=== PATIENT | male | born 1980 | race Caucasian/White ===

== ENCOUNTER → 2018-02-09 03:25 | Outpatient (CLI) | payer BC, SELFPAY ==
[2018-02-09 11:37] LABS: HCT 41.8 % (40.0-50.0); HGB 14.6 g/dL (13.5-17.5); Mean Corp. HGB Concentration 34.9 g/dL (32.0-36.0); Mean Corpuscular Hemoglobin 32.5 pg (27.0-33.0); Mean Corpuscular Volume 93.1 fL (80-95); Mean Platelet Volume 10.3 fL (8.0-11.0); Platelet Count 214 x1000/uL (130-400); RBC 4.49 m/cumm (4.50-6.00); RBC Distribution Width 11.7 % (11.8-14.1); White Blood Cell Count 11.17 k/cumm (4.4-10.8)
[2018-02-09 12:21] LABS: ALT 72 U/L (12-78); AST 47 U/L (15-37); Alkaline Phosphatase 119 U/L (46-116); Anion Gap 7.8 mmol/L (3-11); BUN 9 mg/dL (7-18); Bilirubin, Total 0.4 mg/dL (0.2-1.0); CO2 28.2 mmol/L (21.0-32.0); Calcium 8.5 mg/dL (8.5-10.1); Chloride 102 mmol/L (98-107); Cholesterol 226 mg/dL (50-200); Glucose 107 mg/dL (70-100); HDL Cholesterol 33 mg/dL (40-60); LDL CHOLESTEROL 137 mg/dL (<100); Potassium 4.6 mmol/L (3.5-5.1); Sodium 138 mmol/L (136-145); TSH (W/Ref FT4) 2.27 uIU/mL (0.358-3.74); Total Protein 7.4 g/dL (6.4-8.2); Triglyceride 400 mg/dL (30-150)
== END ==
PROVIDERS: PCP Family Medicine; Visit Provider Family Medicine
DX: R00.0 Tachycardia, unspecified (principal)
CPT/HCPCS: 36415; 80053; 80061; 83721; 85027; 84443

== ENCOUNTER 2022-05-31 12:22 | Emergency (ER) | payer OTHER, SELFPAY ==
[2022-05-31 12:25] VITALS: BP 149/100; PULSE 113; RESP 16; TEMP 36.5; O2SAT 97
[2022-05-31 12:40] LABS: Bilirubin Small (Negative); Blood Negative (Negative); Clarity Clear (Clear); Glucose Negative (Negative); Ketones 15 mg/dL (Negative); Leukocyte Esterase Negative (Negative); Nitrite Negative (Negative); pH 7.5 (5-8)
[2022-05-31 12:48] LABS: Bacteria Rare HPF (Negative); C & S Indicated? No; Casts Negative LPF (Negative); Crystals Negative HPF (Negative); Epithelial Cells Negative HPF (Negative); Mucus Trace (Negative); RBC 0-2 HPF (0-2); WBC 0-2 HPF (0-5)
[2022-05-31] MEDS: Normal Saline 1,000 ML 1000 ML IV (12:49)
[2022-05-31 12:56] LABS: Abs Immature Grans 0.05 10^3/uL (0.0-0.06); Absolute Basophil Count 0.13 10^3/uL (0.0-0.2); Absolute Eosinophil Count 0.28 10^3/uL (0.0-0.7); Absolute Lymphocyte Count 3.22 10^3/uL (1.2-3.4); Absolute Monocyte Count 1.46 10^3/uL (0.1-0.8); Absolute Neutrophil Count 8.91 10^3/uL (1.2-6.7); Basophils % 0.9; HCT 49.1 % (40.0-50.0); HGB 16.4 g/dL (13.5-17.5); Immature Grans % 0.4; Lymphocytes % 22.9; MCH 34.2 pg (27.0-33.0); MCHC 33.4 % (32.0-36.0); MCV 102 fL (80-95); MPV 10.2 fL (8.0-11.0); Monocytes % 10.4; Neutrophils % 63.4; Platelet Count 186 10^3/uL (130-400); RDW 11.7 % (11.8-14.1); RDW-SD 44.4 fL; WBC 14.05 10^3/uL (4.4-10.8)
--- NOTE | 2022-05-31 12:57 | W.ED.GENAD ---
Discharge Plan Disposition Patient Disposition: Home Condition: Stable Discharge Details Clinical Impression: Cirrhosis of liver, Hernia, umbilical, Ascites Primary Care Provider: Unknown,Unknown ED Provider: Corey Oneil Home Meds and New Rx's Prescriptions: No Action No Known Home Meds Discharge Instructions Instructions: Cirrhosis (ED), Umbilical Hernia (ED), Ascites (ED) Additional Instructions: At this time your CAT scan shows that you have ascites and liver cirrhosis. This is likely secondary to your alcohol use, please stop drinking. I have contacted our excellence coach and requested that they reach out to you in the next 24-48 hours to discuss options with you. You do have a hernia which is soft and reproducible, I have provided you the name and number of our local surgical team to discuss your symptoms and potential treatment. Please follow-up with your primary care provider on Thursday as already scheduled to discuss your ER visit, ongoing symptoms, and need for further outpatient reevaluation. Please watch for new or worsening symptoms and return to the ER for any concerns. Referrals: Phu Montes De Oca MD [ [facility] STAFF PHYSICIAN] - Medical Decision Making This is a 41-year-old gentleman, reports past medical history of appendectomy, chronic alcohol abuse, presenting to the ER for central abdominal pain for 3-4 weeks, this began acutely after lifting a snowmobile. He also reports that in general he feels as though his stomach is larger than usual, feeling bloated. He states he has no pain in his abdomen unless he moves or bends over. He denies recent illness. Denies fever, chest pain, shortness of breath, cough, nausea, vomiting, change in appetite, change in bowel or bladder function. Denies black tarry stools or bright red blood in his stools. Patient states that he has drank alcohol regularly for the past 20 years. Had 1 year of sobriety. Patient states that he recently went through divorce and prior to the divorce had been heavily stressed causing his alcohol use to be much worse over the past couple of years. He states recently over the past week or 2 he has decreased his alcohol intake in general and has not had any hard alcohol. He reports that he typically drinks 1 large glass of wine an evening as well as a single beer. Patient is not interested in detox at this time. He denies history of severe alcohol withdrawal. He appears to have an umbilical hernia which is easily reduced and likely will require outpatient surgical follow-up. Concern for ascites given his alcohol abuse. He appears well, nontoxic, afebrile, based upon his evaluation little suspicion for spontaneous bacterial peritonitis. He is not tachypneic. O2 sat are 97% on room air. I see no clear indication for emergent paracentesis. Laboratory values reveal nonspecific leukocytosis of 14.05. No evidence of anemia or thrombocytopenia. Electrolytes unremarkable. Creatinine 0.8 with a GFR of 112.61. Glucose 139. Total bili 1.0 AST 89 ALT 35 alk phosphatase 201 albumin 3.7 lipase 200. Urinalysis with 15 ketones, no signs of infection. Alcohol less than 3. Repeat heart rate of 106. Last drink yesterday, alcohol less than 3 now, has mild tachycardia but displays no other signs of withdrawal. We discussed his CT findings and his alcohol use. I will refer to our surgical services for his umbilical hernia. He is interested in speaking with excellence coach but not today. I have reached out to the excellence coach and request that they contact him on his phone in the next 24-48 hours. Patient is scheduled to be seen by his PCP on Thursday. We discussed the importance of not drinking. CT could not exclude pneumonia however clinically this is more likely to be a pleural effusion. We will not initiate antibiotic therapy. Strict discharge and return precautions were provided. Patient understands, is agreeable to this plan, and has no additional questions or concerns upon discharge. This documentation was generated using [employer] dictation system, please disregard any oddities of phrase or misspellings. Medical Records Medical records reviewed: Yes I reviewed the patient's medical records. Imaging Data Radiologic Study: Attestation: I personally reviewed and interpreted this imaging study as follows: Imaging: CT Scan Radiologist's impression: PROCEDURE INFORMATION: Exam: CT Abdomen And Pelvis With Contrast Exam date and time: 05/31/2022 1:12 PM Age: 41 years old Clinical indication: Bloating; Abdominal pain; Generalized; Patient HX: ETOH use; Wbc = 14 TECHNIQUE: Imaging protocol: Computed tomography of the abdomen and pelvis with contrast. Radiation optimization: All CT scans at this facility use at least one of these dose optimization techniques: automated exposure control; mA and/or kV adjustment per patient size (includes targeted exams where dose is matched to clinical indication); or iterative reconstruction. Contrast material: OMNIPAQUE 350; Contrast volume: 100 ml; Contrast route: INTRAVENOUS (IV); COMPARISON: No relevant prior studies available. FINDINGS: Lungs: Consolidation in the left lower lobe may represent atelectasis or pneumonia.. Pleural spaces: Mild left pleural effusion.. Liver: Lobulated liver consistent with cirrhosis. Gallbladder and bile ducts: Normal. No calcified stones. No ductal dilation. Pancreas: Normal. No ductal dilation. Spleen: Normal. No splenomegaly. Adrenal glands: Normal. No mass. Kidneys and ureters: Normal. No hydronephrosis. Stomach and bowel: Unremarkable. No obstruction. No mucosal thickening. Appendix: No evidence of appendicitis. Intraperitoneal space: Moderate ascites in the abdomen and pelvis.. Vasculature: Unremarkable. No abdominal aortic aneurysm.Lymph nodes: Unremarkable. No enlarged lymph nodes. Urinary bladder: Unremarkable as visualized. Reproductive: Unremarkable as visualized. Bones/joints: Unremarkable. No acute fracture. Soft tissues: Unremarkable. IMPRESSION: 1. Moderate ascites in the abdomen and pelvis.. 2. Lobulated liver consistent with cirrhosis. 3. Mild left pleural effusion.. 4. Consolidation in the left lower lobe may represent atelectasis or pneumonia.. Addendum created by Zion Spears MD on 05/31/2022 2:28 PM Eastern Time ([place]): Addendum: Small umbilical hernia contains ascites. No bowel. Series 4, image 72. It measures 18 mm in width Initial Report created on 05/31/2022 2:05 PM Eastern Time ([place]): Lab Data Lab results reviewed: Yes I reviewed the patient's lab results. Labs: Laboratory Tests Range/Units 05/31/22 05/31/22 05/31/22 12:30 12:46 12:46 WBC (4.4-10.8) 10^3/uL 14.05 H RBC (4.36-5.78) 10^6/uL 4.80 Hgb (13.5-17.5) g/dL 16.4 Hct (40.0-50.0) % 49.1 MCV (80-95) fL 102 H MCH (27.0-33.0) pg 34.2 H MCHC (32.0-36.0) % 33.4 RDW (11.8-14.1) % 11.7 L Plt Count (130-400) 10^3/uL 186 MPV (8.0-11.0) fL 10.2 Immature Gran % 0.4 Neutrophils % 63.4 Lymphocytes % 22.9 Monocytes % 10.4 Eosinophils % 2.0 Basophils % 0.9 Nucleated RBC % (0.0-0.3) % 0.0 Absolute Neutrophils (1.2-6.7) 10^3/uL 8.91 H Absolute Lymphocytes (1.2-3.4) 10^3/uL 3.22 Absolute Monocytes (0.1-0.8) 10^3/uL 1.46 H Absolute Eosinophils (0.0-0.7) 10^3/uL 0.28 Absolute Basophils (0.0-0.2) 10^3/uL 0.13 Sodium (136-145) mmol/L 139 Potassium (3.5-5.1) mmol/L 3.6 Chloride (98-107) mmol/L 101 Carbon Dioxide (21.0-32.0) mmol/L 29.7 Anion Gap (3-11) mmol/L 8.3 BUN (7-18) mg/dL 5 L Creatinine (0.70-1.30) mg/dL 0.8 Est GFR (CKD-EPI 2020) (mL/min/1.73m2) 112.61 Glucose (74-106) mg/dL 139 H Calcium (8.5-10.1) mg/dL 8.8 Total Bilirubin (0.2-1.0) mg/dL 1.0 AST (15-37) U/L 89 H ALT (16-63) U/L 35 Alkaline Phosphatase (46-116) U/L 201 H Total Protein (6.4-8.2) g/dL 7.7 Albumin (3.4-5.0) g/dL 3.7 Lipase (73-393) U/L 200 Urine Color (Yellow) Yellow Urine Clarity (Clear) Clear Urine pH (5-8) 7.5 Ur Specific [place] (1.005-1.025) 1.020 Urine Protein (Negative) mg/dL Trace H Urine Ketones (Negative) mg/dL 15 H Urine Blood (Negative) Negative Urine Nitrite (Negative) Negative Urine Bilirubin (Negative) Small H Urine Urobilinogen (Up TO 0.2) EU/dL 2.0 H Ur Leukocyte Esterase (Negative) Negative Urine RBC (0-2) HPF 0-2 Urine WBC (0-5) HPF 0-2 Ur Epithelial Cells (Negative) HPF Negative Urine Crystals (Negative) HPF Negative Urine Bacteria (Negative) HPF Rare Urine Casts (Negative) LPF Negative Urine Mucus (Negative) Trace Ur Culture Indicated? No Urine Glucose (Negative) mg/dL Negative Ethyl Alcohol (<10) mg/dL Range/Units 05/31/22 12:46 WBC (4.4-10.8) 10^3/uL RBC (4.36-5.78) 10^6/uL Hgb (13.5-17.5) g/dL Hct (40.0-50.0) % MCV (80-95) fL MCH (27.0-33.0) pg MCHC (32.0-36.0) % RDW (11.8-14.1) % Plt Count (130-400) 10^3/uL MPV (8.0-11.0) fL Immature Gran % Neutrophils % Lymphocytes % Monocytes % Eosinophils % Basophils % Nucleated RBC % (0.0-0.3) % Absolute Neutrophils (1.2-6.7) 10^3/uL Absolute Lymphocytes (1.2-3.4) 10^3/uL Absolute Monocytes (0.1-0.8) 10^3/uL Absolute Eosinophils (0.0-0.7) 10^3/uL Absolute Basophils (0.0-0.2) 10^3/uL Sodium (136-145) mmol/L Potassium (3.5-5.1) mmol/L Chloride (98-107) mmol/L Carbon Dioxide (21.0-32.0) mmol/L Anion Gap (3-11) mmol/L BUN (7-18) mg/dL Creatinine (0.70-1.30) mg/dL Est GFR (CKD-EPI 2020) (mL/min/1.73m2) Glucose (74-106) mg/dL Calcium (8.5-10.1) mg/dL Total Bilirubin (0.2-1.0) mg/dL AST (15-37) U/L ALT (16-63) U/L Alkaline Phosphatase (46-116) U/L Total Protein (6.4-8.2) g/dL Albumin (3.4-5.0) g/dL Lipase (73-393) U/L Urine Color (Yellow) Urine Clarity (Clear) Urine pH (5-8) Ur Specific [place] (1.005-1.025) Urine Protein (Negative) mg/dL Urine Ketones (Negative) mg/dL Urine Blood (Negative) Urine Nitrite (Negative) Urine Bilirubin (Negative) Urine Urobilinogen (Up TO 0.2) EU/dL Ur Leukocyte Esterase (Negative) Urine RBC (0-2) HPF Urine WBC (0-5) HPF Ur Epithelial Cells (Negative) HPF Urine Crystals (Negative) HPF Urine Bacteria (Negative) HPF Urine Casts (Negative) LPF Urine Mucus (Negative) Ur Culture Indicated? Urine Glucose (Negative) mg/dL Ethyl Alcohol (<10) mg/dL < 3.0 HPI General Mode of arrival: ambulatory. Date/Time Provider Initiated Documentation: 05/31/22 12:23. Limitations to Documentation: no limitations. Information obtained by: patient and family. History of Present Illness 41 year old M presents to the emergency department with the chief complaint of abd pain/bloating, described as mild, with intensity rated at 3. Quality is described as other (bloating), and is localized to the abdomen. Patient reports no radiation. Patient started experiencing this week(s) (at least 3 ) and it has been constant. No relieving factors improve symptom(s), Movement worsens symptoms (lifting) . Patient notes no other symptoms.. Patient did receive the following treatments prior to arrival, none Related Data Home Medications Medication Instructions Recorded Confirmed Unknown [No Known Home Meds] 02/23/18 05/31/22 Allergies Allergy/AdvReac Type Severity Reaction Status Date / Time No Known Allergies Allergy Unverified 05/31/22 12:30 General Stated Complaint: Abd Prob СВЕТЛАНА: 3 Review of Systems Constitutional Constitutional: Denies fever(s) ENT Ears, Nose, Mouth, and Throat: Denies neck pain Cardiovascular Cardiovascular: Denies chest pain and Denies dyspnea Respiratory Respiratory: Denies dyspnea Gastrointestinal Gastrointestinal: Reports abdominal pain, Denies melena, Reports bloating, Denies hematochezia, Denies constipation, Denies diarrhea, Reports loose stools, Denies nausea and Denies vomiting Genitourinary Genitourinary: Denies dysuria Musculoskeletal Musculoskeletal: Denies back pain and Denies neck pain Integumentary/Breasts Skin/Breast: Denies rash [facility] All Active Problems (Updated 05/31/22 @ 14:42 by LAURI Samson) Cirrhosis of liver (Acute) Hernia, umbilical (Acute) Ascites (Acute) Hyperlipidemia (Chronic) Alcohol dependence (Chronic) Prediabetes (Chronic) Tachyarrhythmia (Acute 02/03/18) Patient has been asymptomatic and has had severe tachyarrhythmia with prolonged periods of palpitations leading to previously. Recently obtain Zio patch. Smoker (Acute 02/03/18) Family history of Nykbl-Fekqhyomy-Koylx (WPW) syndrome (Chronic 02/03/18) Surgical History Appendectomy Family History Mother WPW (Slnsp-Zlzpnkasf-Qcvdt syndrome) Brother No problems noted. Brother No problems noted. 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 Pets and animals: Yes Pets and animals: dog(s) Duration: 45-60 minutes/day Frequency: daily Jennifer/Orthodox: Quaker Special jennifer needs: No Seatbelt use: never Helmet use: Yes Helmet use: always Do you feel safe at home: Yes Do you feel safe in your relationship?: Yes Exam Const General: cooperative, healthy appearing, comfortable and no acute distress Orientation: alert, awake and oriented x3 HENMT Head: normal to inspection, normocephalic and atraumatic Face and sinus: normal facial exam Mouth: moist mucous membranes Eyes General: appearance normal, both eyes and all related structures Conjunctivae: conjunctivae normal Neck Neck: normal visual inspection, full ROM, no meningeal signs, trachea midline and supple Resp Effort & Inspection: normal respiratory effort and able to speak in complete sentences Auscultation: diminished lung sounds bilaterally in the lower lung barlow Cardio Rate: tachycardic (104) Rhythm: regular rhythm GI Inspection: distended and visible herniation Palpation: soft, not firm, no guarding, hernia umbilical (Soft, nontender, easily reduced), nontender and ascites Auscultation: normal bowel sounds Back/Spine/Pelvis Back: No back tenderness Skin General skin exam: no rashes or lesions noted Neuro General: patient alert, patient awake, patient oriented x3, moves all extremities and no focal motor deficits Cognition: normal cognition Speech: speech normal Gait: normal gait Motor: muscle tone normal throughout Sensory Exam: no sensory deficits noted Extrem General: normal to inspection, full ROM, capillary refill normal, no pedal edema and no calf tenderness Psych Appearance: grossly normal Mental Status: mental status grossly normal Course Vital Signs Vital signs: Vital Signs Temperature 36.5 C 05/31/22 12:25 Pulse 113 H 05/31/22 12:25 Respiratory Rate 16 05/31/22 12:25 Blood Pressure 149/100 H 05/31/22 12:25 Pulse Oximetry 97 05/31/22 12:25 Temperature 36.5 C 05/31/22 12:25 Temperature Source Skin 05/31/22 12:25 Pulse 113 H 05/31/22 12:25 Respiratory Rate 16 05/31/22 12:25 Respiratory Effort 05/31/22 12:28 Blood Pressure 149/100 H 05/31/22 12:25 Blood Pressure Position Sitting 05/31/22 12:25 Pulse Oximetry 97 05/31/22 12:25 Oxygen Delivery Method Room Air 05/31/22 12:25 Oxygen Flow Rate 0 05/31/22 12:25 Pain Level 5 05/31/22 12:25 Lab/Test Results Lab/Test Results: Laboratory Tests Range/Units 05/31/22 12:30 Urine Color (Yellow) Yellow Urine Clarity (Clear) Clear Urine pH (5-8) 7.5 Ur Specific [place] (1.005-1.025) 1.020 Urine Protein (Negative) mg/dL Trace H Urine Ketones (Negative) mg/dL 15 H Urine Blood (Negative) Negative Urine Nitrite (Negative) Negative Urine Bilirubin (Negative) Small H Urine Urobilinogen (Up TO 0.2) EU/dL 2.0 H Ur Leukocyte Esterase (Negative) Negative Urine RBC (0-2) HPF 0-2 Urine WBC (0-5) HPF 0-2 Ur Epithelial Cells (Negative) HPF Negative Urine Crystals (Negative) HPF Negative Urine Bacteria (Negative) HPF Rare Urine Casts (Negative) LPF Negative Urine Mucus (Negative) Trace Ur Culture Indicated? No Urine Glucose (Negative) mg/dL Negative PAWSS Have you Been Recently Intoxicated or Drunk Within the Last 30 days?: Yes Have you Ever Experienced Previous Episodes of Alcohol Withdrawal?: Yes Have you ever Experienced Withdrawal Seizures?: No Have you ever Experienced Delirium Tremens(DT)s?: Yes Have you ever undergone Alcohol Rehabilitation Treatment (i.e, inpt ot outpatient treatment programs)?: No Have you ever Experienced Blackouts?: No Have you ever Combined Alcohol with other Downers within the last 90 days?: Yes Have you ever Combined Alcohol with any other Substance of Abuse during the last 90 days?: No Positive Blood Alcohol level on Presentation? [PCS.BAL]: No Evidence of Increased Autonomic Activity (i.e. HR>120, tremor, sweating, agitation, nausea)?: No Result: 3
--- NOTE | 2022-05-31 13:00 | DI.CT_ITS ---
Exam(s) CT ABDOMEN PELVIS W EXAM: CT ABDOMEN PELVIS W CLINICAL HISTORY: pain/bloating/wbc 14, etoh use. TECHNIQUE: Imaging Protocol: Axial computed tomography images with coronal and sagittal reformatted images were created and reviewed CONTRAST MATERIAL: Intravenous: Omnipaque 350 Contrast volume:100 ml Oral: no COMPARISON: No exams were available for comparison FINDINGS: ABDOMEN: Lung Bases: Small left pleural effusion. Liver: Decreased attenuation, nodular surface, cirrhotic appearance. No measurable mass. Gallbladder and biliary tract: No radiodense calculus or dilation. Pancreas: Normal density, no abnormal calcifications or inflammatory process. Spleen: Normal. Kidneys: Normal size, contour and axis. No radiodense stones or obstructive uropathy. No masses seen. Adrenal glands: No masses seen. Abdominal Aorta: Abdominal portion non-dilated. Soft tissues: Small umbilical hernia containing ascit es. PELVIS: Bladder: No gross wall thickening. No calculi.No focal mass. Bowel: No obstruction or bowel wall thickening. Peritoneal cavity: Moderate ascites. Bones: Within normal limits for age. Reproductive organs: Within normal limits. Lymph nodes: Unremarkable. Impression: Cirrhotic appearing liver. Moderate ascites. RADIATION DOSE DELIVERED: 1,451.83mGy.cm Total DLP DATA REPOSITORY: All CT scans at this facility are submitted to the National Radiology Data Registry (NRDR) Dose Index Registry (DIR) with the [employer] (A[employer]). RADIATION OPTIMIZATION: All CT scans at this facility use at least one of these dose optimization te chniques: automated exposure control; mA and/or kV adjustment per patient size (includes targeted exa ms where dose is matched to clinical indication); or iterative reconstruction.
[2022-05-31] MEDS: Omnipaque 350 MG/ML 100 ML BTL IJ (13:08)
[2022-05-31] MEDS: Normal Saline - Diluent 50 ML VIAL IJ (13:09)
[2022-05-31 13:10] LABS: ALT 35 U/L (16-63); AST 89 U/L (15-37); Albumin 3.7 g/dL (3.4-5.0); Alkaline Phosphatase 201 U/L (46-116); Anion Gap 8.3 mmol/L (3-11); BUN 5 mg/dL (7-18); CO2 29.7 mmol/L (21.0-32.0); CREATININE 0.8 mg/dL (0.70-1.30); Calcium 8.8 mg/dL (8.5-10.1); Chloride 101 mmol/L (98-107); ETHANOL BLOOD < 3.0 mg/dL (<10); Estimated GFR 112.61 (mL/min/1.73m2); Glucose 139 mg/dL (74-106); Lipase 200 U/L (73-393); Potassium 3.6 mmol/L (3.5-5.1); Sodium 139 mmol/L (136-145); Total Protein 7.7 g/dL (6.4-8.2)
--- NOTE | 2022-05-31 14:05 | DI.VRAD_ITS ---
Addendum created by Zion Spears MD on 05/31/2022 2:28:43 PM EST: Addendum: Small umbilical hernia contains ascites. No bowel. Series 4, image 72. It measures 18 mm in width Initial report created on 05/31/2022 2:05:17 PM EST: PROCEDURE INFORMATION: Exam: CT Abdomen And Pelvis With Contrast Exam date and time: 05/31/2022 1:12 PM Age: 41 years old Clinical indication: Bloating; Abdominal pain; Generalized; Patient HX: ETOH use; Wbc = 14 TECHNIQUE: Imaging protocol: Computed tomography of the abdomen and pelvis with contrast. Radiation optimization: All CT scans at this facility use at least one of these dose optimization techniques: automated exposure control; mA and/or kV adjustment per patient size (includes targeted exams where dose is matched to clinical indication); or iterative reconstruction. Contrast material: OMNIPAQUE 350; Contrast volume: 100 ml; Contrast route: INTRAVENOUS (IV); COMPARISON: No relevant prior studies available. FINDINGS: Lungs: Consolidation in the left lower lobe may represent atelectasis or pneumonia.. Pleural spaces: Mild left pleural effusion.. Liver: Lobulated liver consistent with cirrhosis. Gallbladder and bile ducts: Normal. No calcified stones. No ductal dilation. Pancreas: Normal. No ductal dilation. Spleen: Normal. No splenomegaly. Adrenal glands: Normal. No mass. Kidneys and ureters: Normal. No hydronephrosis. Stomach and bowel: Unremarkable. No obstruction. No mucosal thickening. Appendix: No evidence of appendicitis. Intraperitoneal space: Moderate ascites in the abdomen and pelvis.. Vasculature: Unremarkable. No abdominal aortic aneurysm. Lymph nodes: Unremarkable. No enlarged lymph nodes. Urinary bladder: Unremarkable as visualized. Reproductive: Unremarkable as visualized. Bones/joints: Unremarkable. No acute fracture. Soft tissues: Unremarkable. IMPRESSION: 1. Moderate ascites in the abdomen and pelvis.. 2. Lobulated liver consistent with cirrhosis. 3. Mild left pleural effusion.. 4. Consolidation in the left lower lobe may represent atelectasis or pneumonia.. Dictated and Authenticated by: Zion Spears MD. Ordering:ABDIAZIZ Nicole MD
[2022-05-31 14:40] VITALS: BP 150/100; PULSE 102; RESP 18; O2SAT 95
[2022-05-31 15:12] VITALS: BP 142/104; PULSE 112; O2SAT 96
== END 2022-05-31 15:22 | disposition home or self-care (01) ==
PROVIDERS: Emergency Provider Physician Assistant
DX: K74.60 Unspecified cirrhosis of liver (principal); K42.9 Umbilical hernia without obstruction or gangrene; R18.8 Other ascites; D72.829 Elevated white blood cell count, unspecified; R00.0 Tachycardia, unspecified; Z90.49 Acquired absence of other specified parts of digestive tract
CPT/HCPCS: 80053; 83690; 96360; 99285; 74177; 80320; 81003; 81015; 85025; 99284; J3490

== ENCOUNTER 2022-07-18 01:14 | Outpatient (CLI) | payer SELFPAY ==
[2022-07-18 12:14] LABS: HCT 48.5 % (40.0-50.0); MCH 31.7 pg (27.0-33.0); MCV 96 fL (80-95); MPV 10.4 fL (8.0-11.0); Platelet Count 196 10^3/uL (130-400); RBC 5.05 10^6/uL (4.36-5.78); RDW 11.7 % (11.8-14.1); WBC 6.77 10^3/uL (4.4-10.8)
[2022-07-18 12:31] LABS: ALT 19 U/L (16-63); AST 26 U/L (15-37); Albumin 3.9 g/dL (3.4-5.0); Alkaline Phosphatase 118 U/L (46-116); BUN 7 mg/dL (7-18); Bilirubin, Total 0.6 mg/dL (0.2-1.0); CREATININE 0.8 mg/dL (0.70-1.30); Calcium 9.2 mg/dL (8.5-10.1); Calculated LDL 173 mg/dL (<100); Chloride 105 mmol/L (98-107); Cholesterol 233 mg/dL (<200); Estimated GFR 112.61 (mL/min/1.73m2); Glucose 104 mg/dL (74-106); HDL Cholesterol 37 mg/dL (40-60); Sodium 138 mmol/L (136-145); Total Protein 7.4 g/dL (6.4-8.2); Triglyceride 119 mg/dL (<150)
[2022-07-18 12:45] LABS: Hemoglobin A1C 5.6 % (<5.7)
[2022-07-21 11:59] LABS: Hepatitis C Ab w Rflx HCV PCR Negative (Negative)
[2022-07-21 12:09] LABS: HIV-1/2 Ag & Ab Screen Negative (Negative)
== END 2022-07-18 01:15 | disposition home or self-care (01) ==
LOC: LOS 01:14
PROVIDERS: PCP Nurse Practitioner Family; Visit Provider Nurse Practitioner Family
DX: K74.60 Unspecified cirrhosis of liver (principal); Z11.59 Encounter for screening for other viral diseases; D75.89 Other specified diseases of blood and blood-forming organs; E78.5 Hyperlipidemia, unspecified; R73.03 Prediabetes; Z11.4 Encounter for screening for human immunodeficiency virus [HIV]
CPT/HCPCS: 36415; 80053; 80061; 85027; 86803; 87389; 83036

== ENCOUNTER 2023-08-16 11:22 | Emergency (ER) | payer OTHER, SELFPAY ==
[2023-08-16 11:24] VITALS: BP 157/75; PULSE 88; RESP 22; TEMP 36.8; O2SAT 100
--- NOTE | 2023-08-16 11:30 | DI.RAD_ITS ---
Exam(s) XR SHOULDER LT COMPLETE 2+V EXAM: XR SHOULDER LT COMPLETE 2+V CLINICAL HISTORY: left shoulder pain. TECHNIQUE: 2D digital imaging was performed. Three views. COMPARISON: No exams were available for comparison FINDINGS: BONES: No acute fracture is present. No bony destructive lesion is seen. JOINTS: No dislocation present. The AC joint is not widened. Mild spurring at the glenoid. SOFT TISSUE: Normal. IMPRESSION: No acute abnormality. DATA REPOSITORY: RADIATION DOSE DELIVERED:
[2023-08-16] MEDS: ACETAMINOPHEN 1,000 MG/100 ML BTL 400 MG (11:42)
[2023-08-16] MEDS: Ketorolac 30 MG/ML VIAL (11:42)
[2023-08-16] MEDS: fentaNYL 100 MCG/2 ML VIAL (11:43)
--- NOTE | 2023-08-16 12:19 | W.ED.GENAD ---
Discharge Plan Disposition Patient Disposition: Home Condition: Stable Discharge Details Clinical Impression: Separation of left acromioclavicular joint, Hematoma of left shoulder Primary Care Provider: Steve Fu ED Provider: Naseem Baires Home Meds and New Rx's Prescriptions: Continued hydroxyzine HCl 25 mg tablet See Rx Instructions PO QHS PRN (Reason: anxiety) Qty: 90 1RF Rx Instructions: 1-2 tab po HS prn mirtazapine 7.5 mg tablet 22.5 mg PO QHS Qty: 270 1RF omeprazole 20 mg capsule,delayed release(DR/EC) 20 mg PO DAILY Qty: 90 4RF Discharge Instructions Instructions: Acromioclavicular Separation (ED), Shoulder Sprain (ED) Additional Instructions: You were seen in the emergency department for the separation of your left AC joint, does not appear significantly displaced at all. This injury is usually not surgical in nature and should get better over time. We did provide you with a sling, you should not use the sling 05/01- you NEED to be performing pendulum exercises to keep from getting frozen shoulder- I am only supplying this sling due to your heightened acute pain, you should not need it at all in 1-2 days. Please use therapeutic dosing of Tylenol (acetamenophen) & Advil (ibuprofen) in an alternating fashion as follows: Take 1000mg of Tylenol every 6 hours without missing doses- that is 4 times per day. Correction in between the Tylenol dosings, take 400-600mg of Advil also on a 6 hour schedule, that is also 4 times per day. The daily maximum dosing of Tylenol is 4000mg, and the daily maximum dosing of Advil is 2400mg. This is safe to do for weeks. Please note that some common cold medications & prescription pain medications may contain acetamenophen and you need to read OTC drug labels and factor that in to maximum daily dosings. Please follow-up with orthopedics for consultation if no improvement by 2 weeks. Please return to the emergency department for complete inability to move your left arm, redness at the shoulder joint or warmth to touch, progressing numbness or weakness of the arm. Referrals: [facility] [Provider Group] Steve Fu, [employer] [Primary Care Provider] - Discharge Data Discharge Date/Time-TO BE ENTERED AT DEPARTURE: 08/16/23 15:37 HPI General Date/Time Provider Initiated Documentation: 08/16/23 12:19. HPI Narrative: 43 year-old male presents to ED today by POV/ambulating with a chief complaint of L shoulder pain after a fall on some stairs last night around 2129- states history of shoulder dislocation. Quality described as L arm tingling and numbness, L posterior pain below the scapula, no radiation to complete numbness, inability to move arm, headstrike, LOC, nausea/vomiting, neck pain. Severity is described as 8-9/10. Palliating factors include took girlfriends pieteronojennifer this morning around 0900 with some relief. Provoking factors include nothing specific. Patient is R-arm dominant. Patient not anticoagulated. Related Data Home Medications Medication Instructions Recorded Confirmed hydroxyzine HCl 25 mg tablet See Rx Instructions PO QHS PRN 06/19/23 08/16/23 anxiety #90 tabs mirtazapine 7.5 mg tablet 22.5 mg (3 x 7.5 mg) PO QHS #270 06/19/23 08/16/23 tabs omeprazole 20 mg capsule,delayed 20 mg PO DAILY #90 caps 06/19/23 08/16/23 release Previous Rx's Medication Instructions Recorded hydroxyzine HCl 25 mg tablet See Rx Instructions PO QHS PRN 06/19/23 anxiety #90 tabs mirtazapine 7.5 mg tablet 22.5 mg (3 x 7.5 mg) PO QHS #270 06/19/23 tabs omeprazole 20 mg capsule,delayed 20 mg PO DAILY #90 caps 06/19/23 release Allergies Allergy/AdvReac Type Severity Reaction Status Date / Time No Known Allergies Allergy Unverified 08/16/23 11:30 General Stated Complaint: Orthopedic СВЕТЛАНА: 3 Review of Systems All systems reviewed & are unremarkable except as noted in HPI and below Exam Narrative Exam Narrative: GENERAL APPEARANCE: Well-nourished, non-toxic, awake and alert, atraumatic, no acute distress. SKIN: Warm, pink, dry, intact, without rashes/lesions/ulcerations. HEAD: Normocephalic, atraumatic, normal hair distribution for gender/age. EYES: Pupils PERRLA, EOMs intact without nystagmus, normal conjunctiva, no exudates on lids/lashes. ENT: Nares patent, no circumoral cyanosis, no facial swelling NECK: Supple, trachea midline, painless cervical ROM. LUNGS/CHEST: Lungs CTA bilaterally- no rhonchi/rales/wheezes diffusely, non-labored respirations, normal A/P diameter, symmetrical expansion, no chest wall deformity, no flail segment, no paradoxical motion or crepitus HEART (CV/PV): Regular rate and rhythm without murmur, no peripheral edema, no JVD. ABDOMEN: Soft, non-distended, no guarding, no tenderness. MSK: Normal ROM, no swelling/deformity to bilateral UEs or LEs, moving all extremities without weakness, no cyanosis, spine midline without tenderness, normal curvature. L UE: Diffuse tenderness to the left shoulder without squared off appearance or deformity, no ecchymosis, sensation intact, pain is focal to the soft tissue inferior to the scapula in the posterior left shoulder as well as axilla, no rib crepitus or tenderness, no focally diminished or absent lung sounds in this area, orchid hand strength limited slightly to pain, sensation intact with brisk capillary refill in all fingers, no crepitus deformity of the distal left arm NEURO: Mental Status AAOx4 - alert to person, place, time, events No facial droop, no forehead involvement. Motor: No focal weakness - strength 5/5 in bilateral UEs and LEs, proximal and distal, symmetric. Sensory: sensation intact to light touch globally. Gait normal: patient ambulated without ataxia into ED room. PSYCH: euthymic, cooperative, pleasant, appropriate speech Course Vital Signs Vital signs: Vital Signs Temperature 36.8 C 08/16/23 11:24 Pulse 88 08/16/23 11:24 Respiratory Rate 22 08/16/23 11:24 Blood Pressure 157/75 H 08/16/23 11:24 Pulse Oximetry 100 08/16/23 11:24 Temperature 36.8 C 08/16/23 11:24 Temperature Source Oral 08/16/23 11:24 Pulse 88 08/16/23 11:24 Respiratory Rate 22 08/16/23 11:24 Blood Pressure 157/75 H 08/16/23 11:24 Blood Pressure Position Sitting 08/16/23 11:24 Pulse Oximetry 100 08/16/23 11:24 Oxygen Delivery Method Room Air 08/16/23 11:24 Oxygen Flow Rate 0 08/16/23 11:24 Pain Level 10 08/16/23 11:43 Medical Decision Making This dictation utilizes [id number] dictation software and may contain unedited grammatical errors. 43 y/o M presents to ED today with a chief complaint of fall down stairs last night around 2129- numbness/tingling to L arm, pain in L shoulder without deformity. Patient has history of shoulder dislocation- denies complete numbness. Patients' medical history: Alcohol use, tobacco use, hyperlipidemia. Family and social history: Tobacco was intoxicated at time of fall last night. Pertinent exam findings / vital signs include L UE: Diffuse tenderness to the left shoulder without squared off appearance or deformity, no ecchymosis, sensation intact, pain is focal to the soft tissue inferior to the scapula in the posterior left shoulder as well as axilla, no rib crepitus or tenderness, no focally diminished or absent lung sounds in this area, orchid hand strength limited slightly to pain, sensation intact with brisk capillary refill in all fingers, no crepitus deformity of the distal left arm. Differential / pathologies of concern include fracture, dislocation, rib fracture, pneumothorax, nerve impingement. Diagnostic studies of: -X-ray left shoulder, CT left shoulder -No fracture or dislocation, CT shows significant soft tissue hematomas. -XR does show AC separation, possible chronic vs acute Interventions of: -Shoulder immobilizer, recommend alternating heat and ice to the area therapeutic dosing of Tylenol and ibuprofen as well as provided to go pack of cyclobenzaprine. Counseled that he should improve as the swelling and hematomas resorb, follow-up with orthopedics or strict return criteria for signs of neurovascular compromise. Findings not consistent with fracture, dislocation, NV compromise. Disposition of separation of left acromioclavicular joint, hematoma of left shoulder. Patient verbalized understanding of the plan and return to ED criteria and engaged in shared decision making. Medical Records Medical records reviewed: Yes I reviewed the patient's medical records. Imaging Data Radiologic Study: Attestation: I personally reviewed and interpreted this imaging study as follows: Imaging: X-Ray Radiologist's impression: Exam: XR Left Shoulder Exam date and time: 08/16/2023 11:57 AM Age: 43 years old Clinical indication: Injury or trauma; Fall; Blunt trauma (contusions or hematomas); Shoulder; Left; Injury details: HX of dislocations TECHNIQUE: Imaging protocol: Radiologic exam of the left shoulder. Views: 2 or more views. COMPARISON: No relevant prior studies available. FINDINGS: Bones/joints: No acute fracture. Degenerative and/or posttraumatic changes of the glenoid. No glenohumeral joint dislocation. The distal clavicle is mildly elevated in relation to the acromion. Pleural space: Mild pleural thickening in the left lung apex. Soft tissues: Unremarkable. IMPRESSION: 1. No glenohumeral joint dislocation. 2. Mildly elevated distal clavicle which could be technique related, chronic or an AC joint injury. Dictated and Authenticated by: Steve Messina MD. Ordering:KYLEIGH Gusman MD Radiologic Study #2: Attestation: I personally reviewed and interpreted this imaging study as follows: Imaging: CT Scan Radiologist's impression: Exam: CT Left Upper Extremity Without Contrast, Shoulder Exam date and time: 08/16/2023 1:54 PM Age: 43 years old Clinical indication: Injury or trauma; Fall; Blunt trauma (contusions or hematomas); Shoulder; Left TECHNIQUE: Imaging protocol: Computed tomography of the left upper extremity without contrast. Exam focused on the shoulder. COMPARISON: CR XR SHOULDER LT COMPLETE 2+V 08/16/2023 11:57 AM FINDINGS: Limitations: Evaluation of the vasculature is limited in the absence of IV contrast. Bones/joints: Small well-corticated bony densities adjacent to the humeral head and glenoid, favored chronic. No acute fracture or dislocation. Soft tissues: 8.6 x 4.9 x 7.3 cm hematoma within the soft tissues of the left upper chest between the proximal humerus and chest wall. Multiple small additional hematomas are seen in the surrounding fat and shoulder musculature. IMPRESSION: 1. Posttraumatic soft tissue injury of the left upper and lateral chest with multiple hematomas, the largest of which measures up to 8.6 cm. Consider MRI for further assessment of muscular and tendinous injuries as clinically warranted. 2. No acute fracture. Dictated and Authenticated by: Steve Messina MD. Ordering:KYLEIGH Gusman MD Quality:SDOH Health Related Social Needs: No Data to Display PFSH All Active Problems (Updated 08/16/23 @ 15:07 by LAURI Meléndez) Hematoma of left shoulder (Acute) Separation of left acromioclavicular joint (Acute) Anxiety (Chronic) Alcohol abuse, in remission (Acute) Hyperlipidemia (Chronic) Prediabetes (Chronic) Tachyarrhythmia (Acute 02/03/18) Patient has been asymptomatic and has had severe tachyarrhythmia with prolonged periods of palpitations leading to previously. Recently obtain Zio patch. Smoker (Acute 02/03/18) Family history of Fpfaq-Srvkrmbez-Neirh (WPW) syndrome (Chronic 02/03/18) Medical History Alcohol dependence Surgical History Appendectomy Family History Mother WPW (Nyihg-Kxdoxqydr-Tbqak syndrome) Brother No problems noted. Brother No problems noted. Grandmother Lymph node cancer Maternal Uncle Prostate cancer Social History Smoking/Tobacco Use Status: Current every day Tobacco Type: cigarettes Smoking risk assessment performed?: Yes Alcohol Intake: current Alcohol Intake frequency: 3 or more drinks per day Alcohol type: beer and wine Drug use: Occasionally Substance use type: marijuana Caregiver/Support person: No Household members: children and other Details: 4 Housing: house Communication Needs: None Do you need help understanding health information?: Never current occupation: [employer] Pets and animals: Yes Pets and animals: dog(s) Sexually active: Yes Do you think of yourself as: straight/heterosexual Current gender identity: male What is your relationship status?: How often do you talk on the phone with friends or family?: three or more times per week How often do you get together with friends or relatives?: twice per week How often do you attend worship or spiritism services?: decline to answer Do you belong to any clubs or organized social groups?: decline to answer Panel score (0-1 are the most socially isolated patients): 1 What type of physical activity do you participate in: none Duration: 45-60 minutes/day Frequency: does not exercise Jennifer/Sabianism: None Special jennifer needs: No Seatbelt use: sometimes Helmet use: No Drive intox or ride w/intox personal driver: No Do you feel safe at home: Yes Do you feel safe in your relationship?: Yes
--- NOTE | 2023-08-16 12:24 | DI.VRAD_ITS ---
PROCEDURE INFORMATION: Exam: XR Left Shoulder Exam date and time: 08/16/2023 11:57 AM Age: 43 years old Clinical indication: Injury or trauma; Fall; Blunt trauma (contusions or hematomas); Shoulder; Left; Injury details: HX of dislocations TECHNIQUE: Imaging protocol: Radiologic exam of the left shoulder. Views: 2 or more views. COMPARISON: No relevant prior studies available. FINDINGS: Bones/joints: No acute fracture. Degenerative and/or posttraumatic changes of the glenoid. No glenohumeral joint dislocation. The distal clavicle is mildly elevated in relation to the acromion. Pleural space: Mild pleural thickening in the left lung apex. Soft tissues: Unremarkable. IMPRESSION: 1. No glenohumeral joint dislocation. 2. Mildly elevated distal clavicle which could be technique related, chronic or an AC joint injury. Dictated and Authenticated by: Steve Messina MD. Ordering:KYLEIGH Gusman MD
--- NOTE | 2023-08-16 13:15 | DI.CT_ITS ---
Exam(s) CT UPPER EXTREMITY LT WO EXAM: CT UPPER EXTREMITY LT WO CLINICAL HISTORY: L shoulder pain TECHNIQUE: Imaging Protocol: Axial computed tomography images with coronal and sagittal reformatted images were created and reviewed. CONTRAST MATERIAL: Noncontrast COMPARISON: CR,XR XR SHOULDER LT COMPLETE 2+V from 08/16/2023 FINDINGS: Bones: There is no evidence of fracture or dislocation. Bony alignment is satisfactory. No cellulitic or osteomyelitic changes are identified. There are mild degenerative changes at the glenoid. Tiny bony density beneath the glenoid is likely chronic. No lytic or sclerotic lesions are identified. Soft Tissues: Large soft tissue hematoma seen in the anterior musculature and axillary fat. IMPRESSION: Anterior soft tissue hematoma. No evidence of fracture. RADIATION DOSE DELIVERED: Total DLP DATA REPOSITORY: All CT scans at this facility are submitted to the National Radiology Data Registry (NRDR) Dose Index Registry (DIR) with the [employer] (ACR). RADIATION OPTIMIZATION: All CT scans at this facility use at least one of these dose optimization te chniques: automated exposure control; mA and/or kV adjustment per patient size (includes targeted exa ms where dose is matched to clinical indication); or iterative reconstruction.
[2023-08-16] MEDS: Dexamethasone 10 MG/ML VIAL IVP (13:30)
[2023-08-16] MEDS: Cyclobenzaprine 10 MG TAB PO (13:31)
[2023-08-16] MEDS: Lidocaine 5% Patch 1 PATCH TP (13:31)
--- NOTE | 2023-08-16 15:01 | DI.VRAD_ITS ---
Addendum created by Steve Messina MD on 08/16/2023 3:05:47 PM EST: THIS REPORT CONTAINS FINDINGS THAT MAY BE CRITICAL TO PATIENT CARE. The findings were verbally communicated via telephone conference with FABIO DIAZ at 3:03 PM EST on 08/16/2023. The findings were acknowledged and understood. Initial report created on 08/16/2023 3:01:16 PM EST: PROCEDURE INFORMATION: Exam: CT Left Upper Extremity Without Contrast, Shoulder Exam date and time: 08/16/2023 1:54 PM Age: 43 years old Clinical indication: Injury or trauma; Fall; Blunt trauma (contusions or hematomas); Shoulder; Left TECHNIQUE: Imaging protocol: Computed tomography of the left upper extremity without contrast. Exam focused on the shoulder. COMPARISON: CR XR SHOULDER LT COMPLETE 2+V 08/16/2023 11:57 AM FINDINGS: Limitations: Evaluation of the vasculature is limited in the absence of IV contrast. Bones/joints: Small well-corticated bony densities adjacent to the humeral head and glenoid, favored chronic. No acute fracture or dislocation. Soft tissues: 8.6 x 4.9 x 7.3 cm hematoma within the soft tissues of the left upper chest between the proximal humerus and chest wall. Multiple small additional hematomas are seen in the surrounding fat and shoulder musculature. IMPRESSION: 1. Posttraumatic soft tissue injury of the left upper and lateral chest with multiple hematomas, the largest of which measures up to 8.6 cm. Consider MRI for further assessment of muscular and tendinous injuries as clinically warranted. 2. No acute fracture. Dictated and Authenticated by: Steve Messina MD. Ordering:KYLEIGH Gusman MD
[2023-08-16] MEDS: Cyclobenzaprine 10 MG TAB, 3 TABS/BTL PO (15:26)
== END 2023-08-16 15:37 | disposition home or self-care (01) ==
PROVIDERS: Emergency Provider Physician Assistant; PCP Nurse Practitioner Family
DX: S43.102A Unspecified dislocation of left acromioclavicular joint, initial encounter (principal); S40.012A Contusion of left shoulder, initial encounter; F17.210 Nicotine dependence, cigarettes, uncomplicated; W00.1XXA Fall from stairs and steps due to ice and snow, initial encounter; Y93.01 Activity, walking, marching and hiking; Y92.89 Other specified places as the place of occurrence of the external cause
CPT/HCPCS: 73030; 73200; J0131; J1100; J1885; J3010